=== PATIENT | female | born 1985 | race Caucasian/White ===

== ENCOUNTER 2017-07-27 11:02 | Inpatient (IN) | payer BC ==
[~2017-07-27] VITALS: Ht 170.2 cm; Wt 66.4 kg
[2017-07-27] VITALS (18 sets, daily range): BP systolic 101–135; BP diastolic 54–77
[2017-07-27 13:02] LABS: BASOPHIL (%) 0.3 % (0-1); EOSINOPHIL (%) 0.7 % (0-5); EOSINOPHIL COUNT 0.1 K/uL (0-0.3); HEMATOCRIT 37.3 % (36.0-46.0); IMMATURE GRANULOCYTE (%) 0.5 % (0.0-0.7); LYMPHOCYTE (%) 14.3 % (15-42); LYMPHOCYTE COUNT 1.7 K/uL (1.0-2.8); MCH 31.6 PG (29.0-34.0); MCHC 34.9 G/DL (30.0-36.0); MCV 90.5 FL (83-99); MONOCYTE (%) 8.9 % (3-12); MONOCYTE COUNT 1.1 K/uL (0-0.8); NEUTROPHIL (%) 75.3 % (45-76); NEUTROPHIL COUNT 9.2 K/uL (1.8-6.4); PLATELET COUNT 175 K/uL (156-360); RBC DIS.WIDTH-CV 12.1 % (11.8-14.6); RBC DIS.WIDTH-SD 40.1 % (39-53); RED BLOOD COUNT 4.12 M/uL (3.80-5.20); WHITE BLOOD COUNT 12.2 K/uL (4.1-10.2)
[2017-07-27 13:28] LABS: GROUP B STREP NEGATIVE (NEGATIVE)
[2017-07-28] VITALS (17 sets, daily range): BP systolic 112–137; BP diastolic 57–75
[2017-07-28] MEDS ORDERED: IBUPROFEN800 MG PO (03:25)
[2017-07-29 07:56] VITALS: BP 121/67
[2017-07-29 14:51] VITALS: BP 127/67
[2017-07-30 07:04] VITALS: BP 126/71
== END 2017-07-30 14:49 | disposition home or self-care (01) | DRG 775 ==
LOC: LDRP-OP 11:02 → 2WEST 11:03 → LDRP-OP 09-17 12:56
PROVIDERS: Advanced Practice Midwife
PROC: 3E033VJ Introduction of Other Hormone into Peripheral Vein, Percutaneous Approach (ICD-10-PCS; principal; 2017-07-27)
PROC: 00HU33Z Insertion of Infusion Device into Spinal Canal, Percutaneous Approach (ICD-10-PCS; principal; 2017-07-27)
PROC: 3E0R3BZ Introduction of Anesthetic Agent into Spinal Canal, Percutaneous Approach (ICD-10-PCS; principal; 2017-07-27)
PROC: 0HQ9XZZ Repair Perineum Skin, External Approach (ICD-10-PCS; 2017-07-28)
PROC: 10E0XZZ Delivery of Products of Conception, External Approach (ICD-10-PCS; 2017-07-28)
DX: O70.1 Second degree perineal laceration during delivery (principal); O60.14X0 Preterm labor third trimester with preterm delivery third trimester, not applicable or unspecified; Z3A.36 36 weeks gestation of pregnancy; O42.919 Preterm premature rupture of membranes, unspecified as to length of time between rupture and onset of labor, unspecified trimester; Z37.0 Single live birth
CPT/HCPCS: 85025; 87081; 87653; G0378; J2540; J3010; J7120